=== PATIENT | female | born 1995 | race Caucasian/White ===

== ENCOUNTER 2023-01-05 16:13 | Emergency (ER) | payer MEDICAID, SELFPAY ==
--- NOTE | ~2023-01-05 | CT_ITS ---
EXAMINATION: CT brain wo con DATE: 01/05/2023 17:44 INDICATION: Seizure. Altered mental status. TECHNIQUE: Computed tomography (CT) of the head was performed without intravenous contrast. The mA wa s adjusted according to patient size. Iterative reconstruction technique was employed. The dose-lengt h product was 529.67 mGy-cm. COMPARISON: None FINDINGS: There is no intracranial hemorrhage, acute infarction, or abnormal intracranial mass lesion . The ventricles are normal in size. The paranasal sinuses are clear. The mastoid air cells are kurtis l. IMPRESSION: 1. Normal brain. Reviewed, dictated and finalized at location A. IMPRESSION: 1. Normal brain.
[2023-01-05 16:19] VITALS: BP 137/73; PULSE 136; RESP 16; TEMP 37.3; O2SAT 97
--- NOTE | 2023-01-05 16:51 | ED.AMS ---
HPI - Altered Mental Status General Chief Complaint: Altered Mental Status Stated Complaint: think im going to have a seizure Time Seen by Provider: 01/05/23 16:49 Source: patient Mode of arrival: EMS Limitations: no limitations History of Present Illness HPI narrative: Patient is a 27 y/o female who presents to the ED with c/o feeling like she was about to have a seizure. Patient reports she did not feel well this morning and had nausea and NBNB vomiting. She reported having subjective fevers, chills. No documented fever. She denied having any abdominal pain, diarrhea. Patient then states she felt out of it and mother reported that she had a blank stare on her face, glassy eyes, would not respond to her aside from saying she felt like she was going to seizure. Mother reported that patient did have previous history of focal seizures that began similarly before turning into convulsions. Patient did not have any convulsions or other seizure-like activity today. Patient's last seizure was over 1 year ago. She sees a Dr. Cardoso with [facility]. She takes Lamictal 150 mg daily, but is noncompliant with this due to forgetting. She states she has missed her medication the last 2 days. Patient denies any headache, dizziness, lightheadedness, vision changes, focal weakness, syncope. Related Data Allergies Allergy/AdvReac Type Severity Reaction Status Date / Time amoxicillin Allergy Mild vomiting Verified 01/05/23 16:16 POTASSIUM CLAVULANATE Allergy Mild vomiting Uncoded 12/24/08 13:57 Review of Systems Review of Systems: CONSTITUTIONAL: Denies fever, chills, or sweats. EYES: Denies visual changes. CARDIOVASCULAR: Denies chest pain. RESPIRATORY: Denies dyspnea. GASTROINTESTINAL: See HPI. GENITOURINARY: Denies dysuria or hematuria. NEUROLOGIC: See HPI. All systems reviewed & are unremarkable except as noted in HPI and below PMFSH Past Medical History Medical History Seizure disorder Surgical History Surgical History (Updated 01/05/23 @ 16:52 by Tonja Carlson PA-C) No pertinent past surgical history Social History Social History (Updated 01/05/23 @ 16:53 by Tonja Carlson PA-C) Smoking status: Never smoker Exam Narrative: GENERAL: Well appearing, morbidly obese, non-toxic, in no acute distress. HEAD: Normocephalic, atraumatic. EYES: PERRL/EOMI, conjunctivae clear bilaterally. No nystagmus. NECK: Supple. No adenopathy, no masses. No meningeal signs. RESPIRATORY: Airway patent, respirations nonlabored. Clear to auscultation bilaterally, no rales, rhonchi, wheezing. CARDIOVASCULAR: Regular rate and rhythm without murmurs, rubs, or gallops. Peripheral pulses 2+ and equal bilaterally. ABDOMINAL: Soft, no tenderness throughout abdomen, nondistended, no hepatosplenomegaly. Normoactive BS. MUSCULOSKELETAL: Moves all extremities. Strength/ROM intact without gross deformities or TTP. No edema. No calf tenderness. SKIN: Warm, dry, normal color. No rashes. NEURO: A&O X3. Speech clear. Follows commands. CN II-XII intact. Sensation grossly intact. Steady gait. No ataxic movements. Strength 5/5 in upper and lower extremities bilaterally. Fujf-ly-eiox and zywlvi-zm-tnsg testing intact bilaterally. No pronator drift. Equal mat machine tender strength bilaterally. No focal deficits. PSYCHIATRIC: Flat affect. Normal interaction. Course Vital Signs Vital signs: Vital Signs Temperature 99.1 F 01/05/23 16:19 Pulse Rate 136 H 01/05/23 16:19 Respiratory Rate 16 01/05/23 16:19 Blood Pressure 137/73 01/05/23 16:19 Pulse Oximetry 97 01/05/23 16:19 Temperature 99.1 F 01/05/23 16:19 Pulse Rate 115 H 01/05/23 21:16 Respiratory Rate 16 01/05/23 21:16 Blood Pressure 111/71 01/05/23 21:16 Pulse Oximetry 98 01/05/23 21:16 MDM - Altered Mental Status MDM Narrative Medical decision making narrative: Patient pr
--- NOTE | 2023-01-05 17:08 | ECG_ITS ---
Measurements Intervals [place] Rate: 121 P: 34 AL: 155 QRS: -18 QRSD: 88 T: 6 QT: 318 QTc: 452 Interpretive Statements SINUS TACHYCARDIA LOW QRS VOLTAGE IN PRECORDIAL LEADS BORDERLINE R WAVE PROGRESSION, ANTERIOR LEADS BASELINE ARTIFACT- V1 ABNORMAL ECG NO PREVIOUS ECG AVAILABLE FOR COMPARISON Electronically Signed On 01-05-2023 21:23:12 CDT by Casey Castelan D.O.
[2023-01-05 17:23] LABS: Basophils Percent Auto 0.3 % (0.2-1.2); Hematocrit 40.6 % (37.0-47.0); Hemoglobin 13.4 g/dL (12.0-15.0); Immature Granulocyte Absolute 0.05 K/mm3 (0.00-0.031); Immature Granulocyte Percent A 0.3 % (0-0.5); Lymphocytes Absolute Auto 1.21 K/mm3 (0.9-3.2); Lymphocytes Percent Auto 7.7 % (18.3-44.2); Mean Corpuscular Hemoglobin 27.6 pg (26-34); Mean Corpuscular Volume 83.5 fl (80-100); Monocytes Absolute Auto 0.5 K/mm3 (0.1-0.6); Neutrophils Percent Auto 88.7 % (45.5-73.1); Platelet Count Result 269 k/mm3 (150-375); Red Blood Count 4.86 M/mm3 (4.2-5.4); Red Cell Distribution Width 13.5 % (11.5-14.5); White Blood Count 15.8 K/mm3 (4.5-10.0)
[2023-01-05] MEDS: levETIRAcetam 1000MG/NACL100ML 1,000 MG/100 ML BAG 400 MG IVPB (17:24)
[2023-01-05] MEDS: SODIUM CHLORIDE 0.9% IV 1,000 ML 999 ML IV CONT ×2 (17:24→19:29)
[2023-01-05 17:36] VITALS: PULSE 112
[2023-01-05 17:49] VITALS: BP 144/87; PULSE 117; O2SAT 99
[2023-01-05 17:51] LABS: Alanine Aminotransferase 24 U/L (6-35); Albumin Level 4.5 g/dL (3.5-5.1); Alkaline Phosphatase 79 U/L (38-126); Anion Gap 8 mmol/L (8-16); Aspartate Amino Transferase 24 U/L (14-36); Bilirubin,Total 1.1 mg/dL (0.2-1.3); Blood Urea Nitrogen 6 mg/dL (7-17); Calcium 8.8 mg/dL (8.4-10.2); Carbon Dioxide 25 mmol/L (22-30); Chloride 102 mmol/L (98-107); Estimated Glomerular Filt Rate > 60; Glucose 129 mg/dL (65-110); Potassium 3.4 mmol/L (3.4-5.0); Sodium 135 mmol/L (137-145)
[2023-01-05 18:02] VITALS: BP 110/81; PULSE 117; O2SAT 98
[2023-01-05 19:01] VITALS: BP 119/82; PULSE 115; O2SAT 100
[2023-01-05 19:02] LABS: Amphetamine Screen Urine Negative (Negative); Barbiturate Screen Urine Negative (Negative); Benzodiazepines Screen Urine Negative (Negative); Cannabinoid Screen Urine Negative (Negative); Cocaine Screen Urine Negative (Negative); Methadone Screen Urine Negative (Negative); Opiate Screen Urine Negative (Negative); Phencyclidine Screen Urine Negative (Negative)
[2023-01-05 19:07] LABS: Appearance Urine Clear (Clear); Bilirubin Urine Negative (Negative); Blood Urine Negative (Negative); Color Urine Yellow (Yellow); Glucose Urine UA Negative (Negative); Ketones Urine Negative (Negative); Leukocyte Esterase Ur Negative LEU/UL (Negative); Nitrate Urine Negative (Negative); Protein Urine Negative (Negative); Specific Grav Ur 1.005 (1.001-1.035); Urobilinogen Urine 0.2 mg/dL (<2.0)
[2023-01-05 19:10] LABS: Add Urine Microscopic? NO
[2023-01-05 21:16] VITALS: BP 111/71; PULSE 115; RESP 16; O2SAT 98
== END 2023-01-05 21:22 | disposition home or self-care (01) ==
PROVIDERS: Emergency Provider Physician Assistant; PCP Family Medicine
DX: R11.2 Nausea with vomiting, unspecified (principal); G40.909 Epilepsy, unspecified, not intractable, without status epilepticus; R00.0 Tachycardia, unspecified; R94.31 Abnormal electrocardiogram [ECG] [EKG]
CPT/HCPCS: 36415; 70450; 80053; 80307; 81003; 81025; 83605; 85025; 93005; 96361; 96374; 99284; J1953; J7030

== ENCOUNTER 2023-06-24 13:32 | Emergency (ER) | payer MEDICAID, SELFPAY ==
[2023-06-24 13:34] VITALS: BP 135/83; PULSE 109; RESP 20; TEMP 36.2; O2SAT 100
--- NOTE | 2023-06-24 13:55 | ED.NAVMDI ---
HPI - Nausea/Vomiting/Diarrhea General Chief complaint: Nausea/Vomiting/Diarrhea <Sherron Henning PA-C - Last Filed: 06/24/23 18:22> Stated complaint: vomitting <Sherron Henning PA-C - Last Filed: 06/24/23 18:22> Time Seen by Provider: 06/24/23 15:08 <Sherron Henning PA-C - Last Filed: 06/24/23 18:22> Source: patient <Sherron Henning PA-C - Last Filed: 06/24/23 18:22> Mode of arrival: ambulatory <Sherron Henning PA-C - Last Filed: 06/24/23 18:22> Limitations: no limitations <Sherron Henning PA-C - Last Filed: 06/24/23 18:22> History of Present Illness HPI Narrative: This is a 27 year old female that presents to the ER for nausea and vomiting ongoing over the last week. No other associated symptoms. Denies fever, abdominal pain, dysuria or diarrhea. <Sherron Henning PA-C - Last Filed: 06/24/23 18:22> Related Data Allergies/Adverse reactions: Allergies Allergy/AdvReac Type Severity Reaction Status Date / Time amoxicillin AdvReac Mild vomiting Verified 06/24/23 14:01 clavulanic acid AdvReac Mild Vomiting Verified 06/24/23 14:01 <Sherron Henning PA-C - Last Filed: 06/24/23 18:22> Review of Systems Review of Systems: CONSTITUTIONAL: Denies fever GASTROINTESTINAL: Reports nausea and vomiting. Denies abdominal pain, or diarrhea. GENITOURINARY: Denies dysuria <Sherron Henning PA-C - Last Filed: 06/24/23 18:22> All systems reviewed & are unremarkable except as noted in HPI and below <Sherron Henning PA-C - Last Filed: 06/24/23 18:22> PMFSH Past Medical History Medical History: Medical History Seizure disorder <Sherron Henning PA-C - Last Filed: 06/24/23 18:22> Surgical History Surgical History: Surgical History (Updated 01/05/23 @ 16:52 by Tonja Carlson PA-C) No pertinent past surgical history <Sherron Henning PA-C - Last Filed: 06/24/23 18:22> Social History Social History: Social History (Updated 01/05/23 @ 16:53 by Tonja Carlson PA-C) Smoking status: Never smoker <Sherron Henning PA-C - Last Filed: 06/24/23 18:22> Exam Narrative: GENERAL: Well-appearing, well-nourished, and in no acute distress. HEAD: Normocephalic, atraumatic. EYES: EOMI. CHEST: Clear to auscultation. No respiratory distress. No wheezes rales or rhonchi HEART: Regular rate and rhythm. No murmur heard. Normal peripheral pulses. ABDOMEN: Soft, nontender, nondistended, normal active bowel sounds. EXTREMITIES: Normal range of motion. No edema. SKIN: Warm, dry, no rash. NEURO: No focal deficits. Alert and oriented x3. PSYCH: Normal mood and affect <Sherron Henning PA-C - Last Filed: 06/24/23 18:22> Course Vital Signs Vital signs: Vital Signs Temperature 97.2 F L 06/24/23 13:34 Pulse Rate 109 H 06/24/23 13:34 Respiratory Rate 20 06/24/23 13:34 Blood Pressure 135/83 06/24/23 13:34 Pulse Oximetry 100 06/24/23 13:34 Oxygen Delivery Room Air 06/24/23 13:34 Temperature 97.6 F 06/24/23 16:48 Pulse Rate 78 06/24/23 16:48 Respiratory Rate 16 06/24/23 16:48 Blood Pressure 118/76 06/24/23 16:48 Pulse Oximetry 100 06/24/23 16:48 Oxygen Delivery Room Air 06/24/23 13:34 <Sherron Henning PA-C - Last Filed: 06/24/23 18:22> Vital Signs Temperature 97.2 F L 06/24/23 13:34 Pulse Rate 109 H 06/24/23 13:34 Respiratory Rate 20 06/24/23 13:34 Blood Pressure 135/83 06/24/23 13:34 Pulse Oximetry 100 06/24/23 13:34 Oxygen Delivery Room Air 06/24/23 13:34 Temperature 97.6 F 06/24/23 16:48 Pulse Rate 78 06/24/23 16:48 Respiratory Rate 16 06/24/23 16:48 Blood Pressure 118/76 06/24/23 16:48 Pulse Oximetry 100 06/24/23 16:48 Oxygen Delivery Room Air 06/24/23 13:34 <Lucy Padron MD - Last Filed: 06/26/23 15:40> MDM - Nausea/Vomiting/Diarrhea MDM Narrative Medical decision making
[2023-06-24 13:57] LABS: Basophils Percent Auto 0.3 % (0.2-1.2); Eosinophils Percent Auto 0.2 % (0-4.4); Hematocrit 42.2 % (37.0-47.0); Hemoglobin 13.4 g/dL (12.0-15.0); Immature Granulocyte Absolute 0.02 K/mm3 (0.00-0.031); Immature Granulocyte Percent A 0.2 % (0-0.5); Lymphocytes Absolute Auto 2.19 K/mm3 (0.9-3.2); Lymphocytes Percent Auto 22.7 % (18.3-44.2); Mean Corpuscular HGB Conc 31.8 g/dl (32-36); Mean Corpuscular Hemoglobin 27.6 pg (26-34); Mean Platelet Volume 10.5 fl (7.4-10.4); Monocytes Absolute Auto 0.3 K/mm3 (0.1-0.6); Monocytes Percent Auto 3.3 % (2.6-8.5); Neutrophils Absolute Auto 7.1 K/mm3 (1.3-6.7); Neutrophils Percent Auto 73.3 % (45.5-73.1); Platelet Count Result 246 k/mm3 (150-375); Red Blood Count 4.85 M/mm3 (4.2-5.4); Red Cell Distribution Width 13.7 % (11.5-14.5); White Blood Count 9.6 K/mm3 (4.5-10.0)
--- NOTE | 2023-06-24 13:58 | PC.NURSE ---
called lab and added on hcg beta.
[2023-06-24] MEDS: ONDANSETRON INJ 4 MG/2 ML VIAL IV PUSH (14:02)
[2023-06-24] MEDS: FAMOTIDINE 20 MG/2 ML VIAL IV PUSH (14:03)
[2023-06-24 14:08] LABS: Appearance Urine Clear (Clear); Bilirubin Urine Negative (Negative); Blood Urine Negative (Negative); Color Urine Yellow (Yellow); Glucose Urine UA Negative (Negative); Ketones Urine Trace mg/dL (Negative); Leukocyte Esterase Ur Negative LEU/UL (Negative); Nitrate Urine Negative (Negative); Protein Urine Negative (Negative); Specific Grav Ur 1.013 (1.001-1.035)
[2023-06-24] MEDS: SODIUM CHLORIDE 0.9% IV 1,000 ML 999 ML IV CONT (14:09)
[2023-06-24 14:27] LABS: Add Urine Microscopic? NO
[2023-06-24 14:38] LABS: Alanine Aminotransferase 24 U/L (6-35); Albumin Level 4.6 g/dL (3.5-5.1); Alkaline Phosphatase 66 U/L (38-126); Anion Gap 10 mmol/L (8-16); Aspartate Amino Transferase 28 U/L (14-36); Bilirubin,Total 1.1 mg/dL (0.2-1.3); Blood Urea Nitrogen 4 mg/dL (7-17); Calcium 9.3 mg/dL (8.4-10.2); Carbon Dioxide 25 mmol/L (22-30); Chloride 99 mmol/L (98-107); Estimated CRCL calculation 135 ml/min; Estimated Glomerular Filt Rate > 60; Glucose 115 mg/dL (65-110); Lipase 34 U/L (23-300); Potassium 4.3 mmol/L (3.4-5.0); Sodium 134 mmol/L (137-145)
[2023-06-24 16:48] VITALS: BP 118/76; PULSE 78; RESP 16; TEMP 36.4; O2SAT 100
== END 2023-06-24 18:12 | disposition home or self-care (01) ==
PROVIDERS: Emergency Medicine; Emergency Provider Emergency Medicine; PCP Family Medicine
DX: O21.9 Vomiting of pregnancy, unspecified (principal); O99.351 Diseases of the nervous system complicating pregnancy, first trimester; G40.909 Epilepsy, unspecified, not intractable, without status epilepticus; Z3A.00 Weeks of gestation of pregnancy not specified
CPT/HCPCS: 36415; 80053; 81003; 81025; 83690; 84702; 85025; 96361; 96374; 96375; 99284; J2405; J7030

== ENCOUNTER 2023-06-29 22:41 | Emergency (ER) | payer MEDICAID, SELFPAY ==
[2023-06-29 22:55] VITALS: BP 133/81; PULSE 103; RESP 20; TEMP 36.6; O2SAT 100
[2023-06-29 23:24] VITALS: BP 124/68; PULSE 102; RESP 29; O2SAT 99
[2023-06-29 23:25] VITALS: PULSE 109; RESP 26; O2SAT 99
[2023-06-29 23:26] VITALS: PULSE 95
[2023-06-29 23:46] VITALS: PULSE 93; RESP 22; O2SAT 100
[2023-06-30] VITALS (12 sets, daily range): BP systolic 108–123; BP diastolic 61–71; PULSE 93–101; RESP 18–22; O2SAT 98–100
[2023-06-30] MEDS: lamoTRIgine 100 MG, lamoTRIgine 50 MG 150 MG PO (00:40)
--- NOTE | 2023-06-30 01:27 | ED.SEIZURE ---
HPI - Seizure General Chief Complaint: Seizure Stated Complaint: Seizure? Time Seen by Provider: 06/29/23 23:29 History of Present Illness HPI Narrative: Patient presents to the emergency department with concern for having a possible seizure. She has had 7 seizures over the past couple years. She had a feeling like she was going to have one tonight. She states she did not want to have an a seizure and came to the emergency department. Patient denies all other review of systems including fevers chills chest pain shortness of breath and abdominal pain. She is 4 to 8 weeks . Was in the emergency department 5 days ago for vomiting and was told that she was then. Denies any vaginal discharge or bleeding in addition to denying abdominal pain or flank pain. Patient was given her home Lamictal, her OB had proved. She has not had any seizure activity during her ER stay Seizure History: Yes Related Data Allergies Allergy/AdvReac Type Severity Reaction Status Date / Time amoxicillin AdvReac Mild vomiting Verified 06/29/23 23:01 clavulanic acid AdvReac Mild Vomiting Verified 06/29/23 23:01 Review of Systems Review of Systems: Review of systems negative except what is documented in the [facility] Past Medical History Medical History Seizure disorder Surgical History Surgical History (Updated 01/05/23 @ 16:52 by Tonja Carlson PA-C) No pertinent past surgical history Social History Social History (Updated 01/05/23 @ 16:53 by Tonja Carlson PA-C) Smoking status: Never smoker Exam Narrative: GENERAL: Well-appearing, well-nourished, and in no acute distress. HEAD: Normocephalic, atraumatic. EYES: PERRLA and EOMI. ENT: Nares clear, no rhinorrhea or epistaxis. Mucous membranes moist. NECK: Supple. CHEST: Clear to auscultation. No respiratory distress. HEART: Regular rate and rhythm. ABDOMEN: Soft, nontender, nondistended. EXTREMITIES: Normal range of motion. No edema. SKIN: Warm, dry, no rash. NEURO: No focal deficits. Alert and oriented x3. PSYCH: Normal mood and affect. Course Course Emergency Course: Vital signs stable. Afebrile. Patient denies any additional complaints other than eyes fluttering and concern for possible seizure. No medical necessity to order labs or imaging. This was discussed with patient. She was monitored without complications. Will DC with close follow-up with her primary care and OB physicians. She is G1, P0, heart tones pending. Due to not having any abdominal pain will not order ultrasound during her stay Vital Signs Vital signs: Vital Signs Temperature 36.6 C 06/29/23 22:55 Pulse Rate 103 H 06/29/23 22:55 Respiratory Rate 20 06/29/23 22:55 Blood Pressure 133/81 06/29/23 22:55 Pulse Oximetry 100 06/29/23 22:55 Oxygen Delivery Room Air 06/29/23 22:55 Temperature 36.6 C 06/29/23 22:55 Pulse Rate 93 06/29/23 23:46 Respiratory Rate 22 H 06/29/23 23:46 Blood Pressure 123/69 06/30/23 00:17 Pulse Oximetry 99 06/30/23 00:37 Oxygen Delivery Room Air 06/29/23 22:55 MDM - Seizure MDM Narrative Medical decision making narrative: Due to patient's body habitus and early unable to hear heart tones. 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
--- NOTE | 2023-06-30 01:38 | PC.NURSE ---
Unable to doppler FHT. Pt reports that she is 4-8 weeks preg. ERP notified.
== END 2023-06-30 01:53 | disposition home or self-care (01) ==
PROVIDERS: Emergency Provider Emergency Medicine; PCP Family Medicine
DX: O26.891 Other specified pregnancy related conditions, first trimester (principal); G40.909 Epilepsy, unspecified, not intractable, without status epilepticus; Z3A.01 Less than 8 weeks gestation of pregnancy
CPT/HCPCS: 99284; A9270

== ENCOUNTER 2023-09-05 21:06 | Emergency (ER) | payer MEDICAID, SELFPAY ==
[2023-09-05 21:07] VITALS: BP 152/75; PULSE 100; RESP 18; TEMP 36.6; O2SAT 100
[2023-09-05 21:24] VITALS: BP 153/91; PULSE 89; O2SAT 98
--- NOTE | 2023-09-05 22:27 | ED.DENTAL ---
HPI - Dental/Oral General Chief complaint: Dental/Oral Stated complaint: dental pain Time Seen by Provider: 09/05/23 21:41 Source: patient Mode of arrival: ambulatory Limitations: no limitations History of Present Illness HPI Narrative: Patient is a 27-year-old female who presents the ED with report of left upper dental pain, tooth# 13. Patient reports having pain for the last several weeks. States pain has become worse to the point it brought her to tears today which prompted her presentation. Patient has been taking Tylenol for the pain and using ice. Patient states she has not been able to get into her dentist as she is currently . She is currently [address] Fowler with [facility]. Denies abdominal pain or vaginal bleeding. Denies difficulty breathing or swelling. Denies nausea or vomiting. Denies fevers. Related Data Allergies Allergy/AdvReac Type Severity Reaction Status Date / Time amoxicillin AdvReac Mild vomiting Verified 09/05/23 22:39 clavulanic acid AdvReac Mild Vomiting Verified 09/05/23 22:39 Review of Systems Review of Systems: CONSTITUTIONAL: Denies fever, chills, or sweats. ENT: See HPI. RESPIRATORY: Denies dyspnea. GASTROINTESTINAL: Denies abdominal pain, nausea, vomiting All systems reviewed & are unremarkable except as noted in HPI and below PMFSH Past Medical History Medical History Seizure disorder Surgical History Surgical History No pertinent past surgical history Social History Social History Smoking status: Never smoker Exam Narrative: GENERAL: Well appearing, morbidly obese with BMI of 46.5, non-toxic, in no acute distress. HEAD: Normocephalic, atraumatic. ENT: Diffuse dental decay. Scattered dental caries. Diffuse gum inflammation. Tenderness along gumline surrounding tooth 13. No focal abscess or fluctuance. RESPIRATORY: Airway patent, respirations nonlabored. CARDIOVASCULAR: Regular rate and rhythm. MUSCULOSKELETAL: Moves all extremities. No gross deformities. SKIN: Warm, dry, normal color. NEURO: A&O X3. Speech clear. Cranial nerves II-XII grossly intact. No ataxic movements. PSYCHIATRIC: Flat affect. Normal interaction. Course Vital Signs Vital signs: Vital Signs Temperature 98 F 09/05/23 21:07 Pulse Rate 100 09/05/23 21:07 Respiratory Rate 18 09/05/23 21:07 Blood Pressure 152/75 H 09/05/23 21:07 Pulse Oximetry 100 09/05/23 21:07 Oxygen Delivery Room Air 09/05/23 21:07 Temperature 98 F 09/05/23 21:07 Pulse Rate 89 09/05/23 21:24 Respiratory Rate 18 09/05/23 21:07 Blood Pressure 119/76 09/05/23 22:37 Pulse Oximetry 98 09/05/23 21:24 Oxygen Delivery Room Air 09/05/23 21:07 MDM - Dental/Oral MDM Narrative Medical decision making narrative: Patient's pain is consistent with dental caries. There are no focal signs of space-occupying abscess. The patient is controlling secretions well without signs of airway compromise. Patient is felt reasonable for outpatient follow-up with dental evaluation. Will start patient on clindamycin. Advised to continue Tylenol. Unable to take anything further as currently Patient denying abdominal pain or vaginal bleeding. Advised close and continued follow-up with OBGYN. Patient's blood pressure was elevated to 150 systolic upon arrival to the ED. She denies previous issues with high blood pressure during her . This was re-evaluated prior to discharge and within normal range. Advised to continue monitoring pressures at home with home blood pressure cuff and again follow-up with OBGYN. Patient given return precautions. Medical Records Attestation: I reviewed the patient's medical records. Discharge Plan Discharge Clinical Impression: Toothache, Dental caries,
[2023-09-05 22:37] VITALS: BP 119/76
[2023-09-05] MEDS: CLINDAMYCIN HCL 150 MG CAP 450 MG PO (22:45)
== END 2023-09-05 22:49 | disposition home or self-care (01) ==
PROVIDERS: Emergency Provider Physician Assistant; PCP Family Medicine
DX: O99.612 Diseases of the digestive system complicating pregnancy, second trimester (principal); K02.9 Dental caries, unspecified; O99.352 Diseases of the nervous system complicating pregnancy, second trimester; G40.909 Epilepsy, unspecified, not intractable, without status epilepticus; Z3A.17 17 weeks gestation of pregnancy
CPT/HCPCS: 99283; A9270

== ENCOUNTER 2023-11-22 10:42 | Emergency (ER) | payer MEDICAID, SELFPAY ==
--- NOTE | ~2023-11-22 | US_ITS ---
US OB follow up 11/22/2023 12:01 Indication: Status post fall. Procedure: High-resolution Limited obstetrical ultrasound Comparison: No prior studies for comparison. Findings: There is a single living intrauterine in vertex presentation. Placenta is posteri or. Amniotic fluid is subjectively normal. heart rate is 153 BPM. The placenta is grossly kurtis l, without suggestion of placenta abruption. However, ultrasound is not diagnostic of abruption sinc e acute hemorrhage can be isoechoic to be placenta. Recommend clinical correlation. Impression: 1: Single living intrauterine in vertex presentation. No significant abnormality identified . Reviewed, dictated and finalized at location A. Impression: 1: Single living intrauterine in vertex presentation. No significant abnormality identified.
[2023-11-22 10:45] VITALS: BP 132/58; PULSE 119; RESP 20; TEMP 36.7; O2SAT 97
[2023-11-22 11:19] LABS: Basophils Percent Auto 0.2 % (0.2-1.2); Eosinophils Absolute Auto 0.1 K/mm3 (0-0.3); Eosinophils Percent Auto 0.5 % (0-4.4); Hematocrit 33.9 % (37.0-47.0); Hemoglobin 11.2 g/dL (12.0-15.0); Immature Granulocyte Absolute 0.05 K/mm3 (0.00-0.031); Immature Granulocyte Percent A 0.5 % (0-0.5); Lymphocytes Absolute Auto 1.32 K/mm3 (0.9-3.2); Lymphocytes Percent Auto 12.8 % (18.3-44.2); Mean Corpuscular Hemoglobin 28.4 pg (26-34); Mean Corpuscular Volume 85.8 fl (80-100); Mean Platelet Volume 10.7 fl (7.4-10.4); Monocytes Absolute Auto 0.4 K/mm3 (0.1-0.6); Monocytes Percent Auto 3.9 % (2.6-8.5); Neutrophils Absolute Auto 8.5 K/mm3 (1.3-6.7); Neutrophils Percent Auto 82.1 % (45.5-73.1); Platelet Count Result 229 k/mm3 (150-375); Red Blood Count 3.95 M/mm3 (4.2-5.4); Red Cell Distribution Width 13.7 % (11.5-14.5); White Blood Count 10.3 K/mm3 (4.5-10.0)
[2023-11-22 11:29] LABS: Anion Gap 5 mmol/L (8-16); Blood Urea Nitrogen 2 mg/dL (7-17); Carbon Dioxide 23 mmol/L (22-30); Chloride 105 mmol/L (98-107); Estimated CRCL calculation 183 ml/min; Estimated Glomerular Filt Rate > 60; Glucose 122 mg/dL (65-110); Potassium 3.5 mmol/L (3.4-5.0); Sodium 133 mmol/L (137-145)
--- NOTE | 2023-11-22 12:37 | ED.FALL ---
HPI - Fall General Chief Complaint: Fall Stated Complaint: FALL DOWN STAIRS 28 WKS PREG Time Seen by Provider: 11/22/23 10:50 Source: patient Mode of arrival: ambulatory Limitations: no limitations History of Present Illness HPI Narrative: 28-year-old 1 para 0 about 5 months of here with complaints of fall. Patient states that she fell down 5 stairs presently has no injuries is worried about her . She presently denies having any vaginal bleeding or discharge. Related Data Allergies Allergy/AdvReac Type Severity Reaction Status Date / Time amoxicillin AdvReac Mild vomiting Verified 09/05/23 22:39 clavulanic acid AdvReac Mild Vomiting Verified 09/05/23 22:39 Review of Systems Review of Systems: All systems reviewed & are unremarkable except as noted in HPI and below Constitutional: Constitutional: Reports no additional constitutional complaints Eyes: Eyes: Reports no additional eye complaints ENT: Reports system reviewed and no additional complaints, except as documented Cardiovascular: Cardiovascular: Reports no additional cardiovascular complaints Respiratory: Respiratory: Reports no additional respiratory complaints Gastrointestinal: Gastrointestinal: Reports no additional gastrointestinal complaints Genitourinary: Genitourinary: Reports no additional female genitourinary complaints Musculoskeletal: Musculoskeletal: Reports no additional musculoskeletal complaints Neurologic: Reports system reviewed and no additional complaints, except as documented Psychiatric: Psychiatric: Reports no additional psychiatric complaints PMFSH Past Medical History Medical History Seizure disorder Surgical History Surgical History No pertinent past surgical history Social History Social History Smoking status: Never smoker Exam Narrative: GENERAL: Well-appearing, well-nourished, and in no acute distress. HEAD: Normocephalic, atraumatic. EYES: PERRLA and EOMI. ENT: Nares clear, no rhinorrhea or epistaxis. Mucous membranes moist. NECK: Supple. CHEST: Clear to auscultation. No respiratory distress. HEART: Regular rate and rhythm. No murmur heard. Normal peripheral pulses. ABDOMEN: Soft, nontender, nondistended, normal active bowel sounds. EXTREMITIES: Normal range of motion. No edema. SKIN: Warm, dry, no rash. NEURO: No focal deficits. Alert and oriented x3. PSYCH: Normal mood and affect. Course Course Emergency Course: Notified patient about her lab work, ultrasound findings advised her to take Tylenol for pain as needed and follow-up with OBGYN Vital Signs Vital signs: Vital Signs Temperature 36.7 C 11/22/23 10:45 Pulse Rate 119 H 11/22/23 10:45 Respiratory Rate 20 11/22/23 10:45 Blood Pressure 132/58 L 11/22/23 10:45 Pulse Oximetry 97 11/22/23 10:45 Oxygen Delivery Room Air 11/22/23 10:45 Temperature 36.7 C 11/22/23 10:45 Pulse Rate 119 H 11/22/23 10:45 Respiratory Rate 20 11/22/23 10:45 Blood Pressure 132/58 L 11/22/23 10:45 Pulse Oximetry 97 11/22/23 10:45 Oxygen Delivery Room Air 11/22/23 10:45 MDM - Fall Medical Records Attestation: I reviewed the patient's medical records. Lab Data Attestation: I reviewed the patient's lab results. 11/22/23 11:02 11/22/23 11:02 Labs: Lab Results 11/22/23 Range/Units 11:02 WBC 10.3 H (4.5-10.0) K/mm3 RBC 3.95 L (4.2-5.4) M/mm3 Hgb 11.2 L (12.0-15.0) g/dL Hct 33.9 L (37.0-47.0) % MCV 85.8 (80-100) fl MCH 28.4 (26-34) pg MCHC 33.0 (32-36) g/dl RDW 13.7 (11.5-14.5) % Plt Count 229 (150-375) k/mm3 MPV 10.7 H (7.4-10.4) fl Immature Gran % (Auto) 0.5 (0-0.5) % Neut % (Auto) 82.1 H (45.5-73.1) % Lymph % (Auto) 12.8 L (18.3-44.2) % [place] % (Auto) 3.9 (2
== END 2023-11-22 13:13 | disposition home or self-care (01) ==
PROVIDERS: Emergency Provider Family Medicine; PCP Family Medicine
DX: Z04.1 Encounter for examination and observation following transport accident (principal); O99.353 Diseases of the nervous system complicating pregnancy, third trimester; G40.909 Epilepsy, unspecified, not intractable, without status epilepticus; Z3A.28 28 weeks gestation of pregnancy; W10.9XXA Fall (on) (from) unspecified stairs and steps, initial encounter
CPT/HCPCS: 36415; 76816; 80048; 84702; 85025; 86850; 86880; 86900; 86901; 86902; 99284